=== PATIENT | female | born 1985 | race Caucasian/White ===

== ENCOUNTER 2016-11-29 11:47 | Emergency (ER) | payer OTHER | END 2016-11-29 12:25 | disposition left against medical advice (07) | LOC: CED 11:47 | DX: O21.0 Mild hyperemesis gravidarum (principal) ==

== ENCOUNTER 2016-11-29 12:43 | Emergency (ER) | payer OTHER ==
--- NOTE | 2016-11-29 12:59 | EDPHY ---
H & P Stated Complaint: N/V 9wks Time Seen by Provider: 11/29/16 12:58 - Personal History LMP (Females 10-55): Current Tetanus/Diphtheria Vaccine: Unsure Current Tetanus Diphtheria and Acellular Pertussis (TDAP): Unsure - Medical/Surgical History Hx Asthma: No Hx Chronic Respiratory Disease: No Hx Diabetes: No Hx Cardiac Disease: No Hx Renal Disease: No Hx Cirrhosis: No Hx Alcoholism: No Hx HIV/AIDS: No Hx Splenectomy or Spleen Trauma: No Other PMH: denies. breast implants - Social History Smoking Status: Never smoked Constitutional: Initial Vital Signs Temperature (C) 36.5 C 11/29/16 12:45 Heart Rate 92 11/29/16 12:45 Respiratory Rate 16 11/29/16 12:45 Blood Pressure 118/88 H 11/29/16 12:45 O2 Sat (%) 98 11/29/16 12:45 O2 Delivery Mode Room Air Allergies/Adverse Reactions: Sulfa (Sulfonamide Antibiotics) Allergy (Verified 06/03/16 12:19) Medical Decision Making ED Course/Re-evaluation: CHIEF COMPLAINT: Vomiting. HISTORY OF PRESENT ILLNESS: The patient is a 31-year-old female who presents with vomiting since yesterday. She was initially sick for four weeks after she became but this subsided. It has now come back. She denies fever, diarrhea, shortness of breath, or other complaints. REVIEW OF SYSTEMS: A 10 point review of systems was performed and is negative with the exception of the elements mentioned in the history of present illness. PHYSICAL EXAM: HR, BP, O2 Sat, RR. Temp noted General Appearance: Alert, well hydrated, appropriate, and non-toxic appearing. Head: Atraumatic without scalp tenderness or obvious injury Eyes: Pupils equal, round, reactive to light and accommodation, EOMI, no trauma , no injection. Ears: Clear bilaterally, no perforation, normal landmarks Nose: Atraumatic, no rhinorrhea, clear. Throat: There is no erythema or exudates, no lesions, normal tonsils, mucus membranes moist. Neck: Supple, 2+ carotid upstroke, nontender, no lymphadenopathy. Respiratory: No retractions, no distress, no wheezes, and no accessory muscle use. Lungs are clear to auscultation bilaterally. Cardiovascular: Regular rate and rhythm, no murmurs, rubs, or gallops. Bilateral carotid, radial, dorsalis pedis, and posterior tibial pulses intact. Good capillary refill all extremities. Gastrointestinal: Abdomen is soft, nontender, non-distended, no masses, no rebound, no guarding, no peritoneal signs. Musculoskeletal: Normal active ROM of all extremities, atraumatic. Neurological: Alert, appropriate, and interactive. The patient has normal DTRs and non-focal cranial nerves, motor, sensory, and cerebellar exam. Skin: No rashes, good turgor, no nodules on palpation. Past medical history:Miscarriage. Social history:Here alone. DIFFERENTIAL DIAGNOSIS: The differential diagnosis for this patient includes, but is not limited to dehydration, viral syndrome, cyclic vomiting syndrome, infectious process. MEDICAL DECISION MAKING: This is a 31-year-old female who presents with constant vomiting since yesterday. She does have a history of this with being . I offered Zofran but she declined and only wants fluids. An IV was established and 1L IV saline to be administered. She will be monitored and eventually PO challenged prior to discharge. - Data Points Medications Given: Discontinued Medications Sodium Chloride (Ns) 1,000 mls @ 0 mls/hr IV ONCE ONE PRN Reason: Wide Open Stop: 11/29/16 13:12 Last Admin: 11/29/16 13:12 Dose: 1,000 mls Departure - Departure Disposition: Home, Routine, Self-Care Clinical Impression: Vomiting Qualifiers: Vomiting type: unspecified Vomiting Intractability: non-intractable Nausea presence: with nausea Qualifier Code: (R11.2) Nausea with vomiting, unspecified Condition: Good Instructions: Acute Nausea and Vomiting (ED) Additional Instructions: Use your Zofran as prescribed when needed for nausea. Follow up with your primary care provider in the next 2-3 days if symptoms are not improving. Return to the emergency department for any serious worsening of condition. Referrals: Emily Warren PA [Primary Care Provider] - As per Instructions Report Scribed for: Westley Estes Report Scribed by: Trent Atkins Date of Report: 11/29/16 Time of Report: 13:32
[2016-11-29] MEDS ORDERED: NS 1,000 ML IV ONE ×2 (13:11→13:41)
[2016-11-29] MEDS ORDERED: ONDANSETRON 4 MG/2 ML VIAL IVP ONE (14:27)
[2016-11-29 14:37] VITALS: BP 100/64; PULSE 74; RESP 18; TEMP 98.1; O2SAT 97
== END 2016-11-29 14:43 | disposition home or self-care (01) ==
DX: O21.0 Mild hyperemesis gravidarum (principal); Z3A.09 9 weeks gestation of pregnancy
CPT/HCPCS: 96374; J2405

== ENCOUNTER 2017-06-27 10:50 | Inpatient (IN) | payer OTHER ==
[2017-06-27] MEDS: LR 1,000 ML IV PRN (11:00)
[2017-06-27] MEDS ORDERED: OLIVE OIL 118 ML BTL MISC PRN (11:45)
[2017-06-27] MEDS ORDERED: EPSOM SALT 454 GM TP PRN (11:45)
[2017-06-27] MEDS ORDERED: TERBUTALINE SULFATE 1 MG/ML VIAL IV PRN (11:45)
[2017-06-27] MEDS ORDERED: OXYTOCIN/RINGERS LACTATE 1,000 ML IV PRN (11:45)
[2017-06-27] MEDS ORDERED: IBUPROFEN 600 MG TAB PO PRN (11:45)
[2017-06-27 12:04] LABS: % IMMATURE GRANULYOCYTES 1.3 % (0.0-1.1); ABSOLUTE IMMATURE GRANULOCYTES 0.13 10^3/uL (0.00-0.10); ADD DIFF? NO; ADD MORPH? NO; ADD SCAN? NO; ATYPICAL LYMPHOCYTE FLAG 0 (0-99); FRAGMENT RBC FLAG 0 (0-99); HEMATOCRIT 37.1 % (38.0-47.0); HEMOGLOBIN 12.5 g/dL (12.6-16.3); LEFT SHIFT FLG 10 (0-99); LIPEMIA HEMOLYSIS FLAG 80 (0-99); MEAN CELL HEMOGLOBIN 30.8 pg (27.9-34.1); MEAN CELL HEMOGLOBIN CONCENTR. 33.7 g/dL (32.4-36.7); MEAN CELL VOLUME 91.4 fL (81.5-99.8); MEAN PLATELET VOLUME 12.3 fL (8.7-11.7); PLATELET CLUMPS FLAG 0 (0-99); PLATELET COUNT 143 10^3/uL (150-400); RED BLOOD CELL COUNT 4.06 10^6/uL (4.18-5.33); RED CELL DISTRIBUTION WIDTH 13.5 % (11.5-15.2)
[2017-06-27 12:19] LABS: ALANINE AMINOTRANSFERASE 26 IU/L (9-52); ASPARTATE AMINOTRANSFERASE 24 IU/L (14-46); BILIRUBIN,TOTAL 0.4 mg/dL (0.1-1.4); BILIRUBIN-CONJUGATED 0.3 mg/dL (0.0-0.5); BILIRUBIN-UNCONJUGATED 0.1 mg/dL (0.0-1.1); CREATININE 0.7 mg/dL (0.6-1.0); GLOMERULAR FILTRATION RATE > 60; LACTATE DEHYDROGENASE 562 IU/L (313-618); URIC ACID 4.8 mg/dL (2.5-6.8)
[2017-06-27] MEDS ORDERED: MAGNESIUM SULF 4 GM/WATER 100 ML BAG IV ONE (12:19)
[2017-06-27] MEDS ORDERED: MAGNESIUM SULF 20 GM/500 ML BAG IV ONE (13:23)
[2017-06-27] MEDS ORDERED: MAGNESIUM SULF 4 GM/WATER 100 ML IV ONE (13:23)
[2017-06-27] MEDS ORDERED: CALCIUM GLUC 10% 1 GM/10 ML VIAL IVP PRN (13:23)
[2017-06-27] MEDS ORDERED: LR 500 ML IV PRN (13:28)
[2017-06-27] MEDS ORDERED: LIDOCAINE 2% JELLY 5 ML TUBE ONE (13:29)
[2017-06-27] MEDS ORDERED: OXYTOCIN/RINGERS LACTATE 500 ML IV SCH (13:30)
[2017-06-27] MEDS: Mag Sulf 500 ML IV SCH ×2 (13:35→22:35)
--- NOTE | 2017-06-27 15:15 | GHP ---
[f rep st] PREOP HISTORY AND PHYSICAL DATE OF ADMISSION: 06/27/2017 ADMITTING DIAGNOSIS: Intrauterine at 38-6/7 weeks gestation with severe preeclampsia and oligohydramnios. HISTORY OF PRESENT ILLNESS: The patient is a 31-year-old 2, para 0-0-1-0, at 38-6/7 weeks g estation, with a last menstrual period of 09/28/2016, and an EDC of 07/05/2017. She has had good pr enatal care at [facility] since registration at 8 weeks gestation. Her course roman s been complicated by severe nausea, vomiting, and hyperemesis. Throughout the entire cou rse, she has taken Zofran p.r.n. and Phenergan. Has had IV hydration several times in this pregnanc y, but not in the last part of the 3rd trimester. She has a history of depression. She discontinue d her Celexa with the diagnosis and is not on anything since, and a recent diagnosis of pr eeclampsia. The patient was seen and had an ultrasound that revealed borderline fluid with a decrea sed KHRIS at 37 weeks. It was 7.9. On followup after aggressive IV hydration, the KHRIS increased to o marvin 10. She had a normal reactive category 1 nonstress test at that time. She has had good m ovement and normal vital signs. She had a followup ultrasound today, 1 week later, and the KHRIS was found to be 3.3 with a maximal vertical pocket of 1.1. The baby is cephalic. In the office, her bl ood pressure was 138/86 and her urine dip was 2+ protein. The patient has complained of increasing headaches, increasing abdominal pain, nausea, vomiting, and increasing edema. She generally just re ports: "I don't feel well." Denies scotoma, denies a Joshi sign, and has had decreased move ment over the last couple of days. The patient had a Tran catheter placed in the office for cervic al ripening and was admitted to labor and delivery for induction of labor secondary to oligohydramni os and suspected preeclampsia. On labor and delivery, she has had severe-range blood pressures, ran ging 160s to 180s over 90s to 120s. She, again, reports headaches, no scotomata, and generally is f eeling okay. She was started on magnesium sulfate for seizure prophylaxis and she had labs drawn. LABORATORY DATA: White blood cell count is 10.2, hemoglobin 12.5, hematocrit 37.1, platelets 143. BUN 8, creatinine 0.7, uric acid 4.8, AST 24, ALT 26, LDH 562. PAST HISTORY: In May of 2016, she had a missed and D and C, this is her second . She had severe nausea and vomiting in , both with her miscarriage and with this , and also has significant constipation with her medication. PAST GYNECOLOGICAL HISTORY: She has a normal menstrual triad, menstrual menarche at age 12, interva l every 28 days. Length 5 days. She had a sure and regular last menstrual period of 09/28/2017. S he has used Depo-Provera OCPs for control in the past. Denies history of any abnormal Paps or any other gynecological problems. PAST MEDICAL HISTORY: Significant for depression and anxiety. She was diagnosed in her 20s, has be en on Celexa for many years, and discontinued with her diagnosis. Her parents also have d epression and anxiety. PAST SURGICAL HISTORY: She has had a breast augmentation. ALLERGIES: She is allergic to sulfa as a childhood reaction. MEDICATIONS: vitamins, DHA, Zantac, Diclegis, she was on Prometrium in the 1st trimester. LABS: She is O positive. Antibody negative. RPR nonreactive. Rubella immune. Hepatitis negative . HIV negative. Cystic fibrosis, SMA, fragile X negative. TSH 0.93. Pap normal. Gonorrhea and c hlamydia normal. Verifi normal. AFP negative. 1-hour GTT 103. GBS is negative. SOCIAL HISTORY: She is . She lives with her . 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 She denies tobacco, alcohol, and drug use. FAMILY HISTORY: Paternal uncle had diabetes. Grandparents had chronic hypertension. Paternal gran dfather had a stroke. Both parents have depression. OBJECTIVE: VITAL SIGNS: Today, most recent blood pressure is 186/106, again ranging 150 to 180s ov er 90s to 120s. heart tones are in the 140s, reactive, moderate variability, category 1. She is not tal. PELVIC: Cervix was checked in the office; she was closed and 60%. Currently, she has a Tran catheter in place. GENERAL: is a well-developed, edematous white female, in no ac ekwok distress. LUNGS: Clear to auscultation bilaterally. HEART: Regular rate and rhythm. No murm ur. ABDOMEN: Is gravid. Fundal height is 38. Negative Joshi sign. DTRs are 2+ over 2+. She roman s 1-beat of clonus. She does have 1+ edema in her feet. LABORATORY DATA: As above. ASSESSMENT/PLAN: 31-year-old 2, para 0-0-1-0, at 38-6/7 weeks gestation. Induction of labo r secondary to preeclampsia. She is on magnesium sulfate for seizure prophylaxis. We will start Pi tocin with a Tran catheter in place, and I will use IV hydralazine or labetalol to keep her blood p ressures in a safer range. /[id number]/MODL
[2017-06-27] MEDS: hydrALAZINE 20 MG/ML VIAL IVP PRN ×4 (16:09→18:50)
[2017-06-27] MEDS ORDERED: LORazepam 2 MG/ML INJ IVP ONE (17:18)
[2017-06-27 18:34] LABS: ALANINE AMINOTRANSFERASE 36 IU/L (9-52); ASPARTATE AMINOTRANSFERASE 44 IU/L (14-46); CREATININE 0.7 mg/dL (0.6-1.0); GLOMERULAR FILTRATION RATE > 60; LACTATE DEHYDROGENASE 712 IU/L (313-618); URIC ACID 6.4 mg/dL (2.5-6.8)
[2017-06-27 18:51] LABS: % IMMATURE GRANULYOCYTES 1.1 % (0.0-1.1); ABSOLUTE IMMATURE GRANULOCYTES 0.16 10^3/uL (0.00-0.10); ADD DIFF? NO; ADD MORPH? NO; ADD SCAN? NO; ATYPICAL LYMPHOCYTE FLAG 0 (0-99); FRAGMENT RBC FLAG 0 (0-99); HEMATOCRIT 40.9 % (38.0-47.0); HEMOGLOBIN 13.9 g/dL (12.6-16.3); LEFT SHIFT FLG 0 (0-99); LIPEMIA HEMOLYSIS FLAG 90 (0-99); MEAN CELL VOLUME 91.1 fL (81.5-99.8); MEAN PLATELET VOLUME 12.6 fL (8.7-11.7); PLATELET CLUMPS FLAG 0 (0-99); PLATELET COUNT 161 10^3/uL (150-400); RED BLOOD CELL COUNT 4.49 10^6/uL (4.18-5.33); RED CELL DISTRIBUTION WIDTH 13.8 % (11.5-15.2)
[2017-06-27 18:55] LABS: ALANINE AMINOTRANSFERASE 29 IU/L (9-52); ASPARTATE AMINOTRANSFERASE 29 IU/L (14-46); BILIRUBIN,TOTAL 0.6 mg/dL (0.1-1.4); BILIRUBIN-CONJUGATED 0.3 mg/dL (0.0-0.5); BILIRUBIN-UNCONJUGATED 0.3 mg/dL (0.0-1.1); CREATININE 0.7 mg/dL (0.6-1.0); GLOMERULAR FILTRATION RATE > 60; LACTATE DEHYDROGENASE 556 IU/L (313-618); URIC ACID 5.1 mg/dL (2.5-6.8)
[2017-06-27] MEDS ORDERED: diphenhydrAMINE 25 MG CAP PO PRN (19:36)
--- NOTE | 2017-06-27 19:56 | OBPROG ---
OBG Labor Progress Note Assessment/Plan: Assessment: IUP at 38w6d severe preeclampsia - improved B/P with hydralazine, labs normal, on mag castro placed at 10:30 this am on low dose pit Plan: will remove castro later tonight. 06/27/17 19:52 Subjective: patient has been miserable on magnesium, feeling done and earlier requesting a c /s for delivery. No GALARZA or nausea. has had occas some visual changes but resolved. Not thinking she can do this. Stated she wasn't anxious but had requested meds and feels much better after dose of Ativan. Currently has been fine with the plan of low dose pit and castro for now. Not feeling ctxns now on 8 mu/min of pit. No cramping after castro today Objective: 06/27/17 18:15 06/27/17 18:15 Patient ABO/Rh O POSITIVE 06/27/17 11:50 Uric Acid 5.1 mg/dL (2.5-6.8) 06/27/17 18:15 Total Bilirubin 0.6 mg/dL (0.1-1.4) 06/27/17 18:15 Conjugated Bilirubin 0.3 mg/dL (0.0-0.5) 06/27/17 18:15 Unconjugated Bilirubin 0.3 mg/dL (0.0-1.1) 06/27/17 18:15 AST 29 IU/L (14-46) 06/27/17 18:15 ALT 29 IU/L (9-52) 06/27/17 18:15 Lactate Dehydrogenase 556 IU/L (313-618) 06/27/17 18:15 Temp Pulse Resp BP Pulse Ox 167/107 H 06/27/17 18:50 Sommers Current Contraction Pattern: Regular (occas ctxns on pit - mild) FHR (bpm): 140 FHR Pattern Variability: Moderate FHR Category: 1 Membranes: Intact Oxytocin Orders Assessment - Pre-Induction/Augmentation Assessment Gestational Age: 38 week(s) and 6 day(s) ICD10 Worksheet Patient Problems: Problems Problem Status Onset Oligohydramnios Acute Severe pre-eclampsia Acute - ICD10 Problem Qualifiers (1) Severe pre-eclampsia Qualifiers: Trimester: T (2) Oligohydramnios Qualifiers: Fetus number: F Trimester: T
--- NOTE | 2017-06-27 21:36 | OBPROG ---
OBG Labor Progress Note Assessment/Plan: Assessment: IUP at 38w6d severe preeclampsia - improved B/P with hydralazine, labs normal, on mag castro out on low dose pit, will increase and get EDWARD when uncomf, AROM after comfortable Plan: Benadryl for sleep, EDWARD prn 06/27/17 19:52 06/27/17 21:33 Subjective: Pt doing a lot better. relaxed and doesn't feel as awful as before, had some Gatorade. No GALARZA or nausea. Disc getting out castro and progressing with pit vs stopping and resting for night. Pt wants to keep going and get EDWARD when ready and rest. Disc B/P being much better and feel she's much more relaxed Objective: 06/27/17 18:15 06/27/17 18:15 Patient ABO/Rh O POSITIVE 06/27/17 11:50 Uric Acid 5.1 mg/dL (2.5-6.8) 06/27/17 18:15 Total Bilirubin 0.6 mg/dL (0.1-1.4) 06/27/17 18:15 Conjugated Bilirubin 0.3 mg/dL (0.0-0.5) 06/27/17 18:15 Unconjugated Bilirubin 0.3 mg/dL (0.0-1.1) 06/27/17 18:15 AST 29 IU/L (14-46) 06/27/17 18:15 ALT 29 IU/L (9-52) 06/27/17 18:15 Lactate Dehydrogenase 556 IU/L (313-618) 06/27/17 18:15 Temp Pulse Resp BP Pulse Ox 167/107 H 06/27/17 18:50 castro removed without problem - SVE Dilation (cm): 2 Effacement (%): 90 Station: -2 Sommers Current Contraction Pattern: Regular (6-8 min) FHR (bpm): 140 FHR Pattern Variability: Moderate FHR Category: 1 Membranes: Intact Oxytocin Orders Assessment - Pre-Induction/Augmentation Assessment Gestational Age: 38 week(s) and 6 day(s) ICD10 Worksheet Patient Problems: Problems Problem Status Onset Oligohydramnios Acute Severe pre-eclampsia Acute - ICD10 Problem Qualifiers (1) Severe pre-eclampsia Qualifiers: Trimester: T (2) Oligohydramnios Qualifiers: Fetus number: F Trimester: T
[2017-06-27] MEDS: ACETAMINOPHEN 325 MG TAB PO PRN (21:40)
[2017-06-28] MEDS: hydrALAZINE 20 MG/ML VIAL IVP PRN (01:25)
[2017-06-28] MEDS ORDERED: fentaNYL 2MCG/ML/BUP 0.1% RTU 100 ML BAG EP ONE (02:09)
[2017-06-28] MEDS ORDERED: BUPIVACAINE 0.25% 30 ML SDV ONE (02:10)
[2017-06-28] MEDS ORDERED: PHENYLEPHRINE HCL 100 MCG/ML SYR ONE ×4 (02:10→16:03)
[2017-06-28] MEDS ORDERED: fentaNYL 100 MCG/2 ML INJ ONE ×2 (02:11→15:15)
[2017-06-28] MEDS: ACETAMINOPHEN 325 MG TAB PO PRN (02:16)
[2017-06-28] MEDS ORDERED: ONDANSETRON 4 MG/2 ML VIAL ONE ×2 (02:47→16:53)
--- NOTE | 2017-06-28 03:55 | PREANESOB ---
Obstetric Pre-Anesthesia Info - General Info Proposed Procedure: Labor and delivery with pitocin and magnesium : 2 Para: 0 WBD: 39 - Info Status: Full Term Monitors: External FHR Baseline (bpm): 150 FHR Pattern: Reassuring - Labor Status Cervical Dilation per last OB SVE: 2 Station per last OB SVE: -2 Pitocin: In Use PIH: Severe Magnesium Sulfate in Use: Yes Indications for Labor Analgesia: Induction of Labor, Pain Control Labor Epidural: Proposed Anesthesia ROS: Preeclampsia. Prior general anesthesia x 2. Allergies/Adverse Reactions: Allergy/AdvReac Type Severity Reaction Status Date / Time Sulfa (Sulfonamide Allergy Verified 06/03/16 12:19 Antibiotics) Home Medications: Medication Instructions Recorded Budesonide [Rhinocort Allergy] 1 NASAL DAILY 06/27/17 Calcium Carb/Vitamin D3/Vit K1 1 each PO 06/27/17 [Viactiv Soft Chew Tablet] Vit27&Calcium/Iron/FA 1 tab PO DAILY 06/27/17 [] Ranitidine HCl [Zantac 75] 75 mg PO BID 06/27/17 Visit Medications: Generic Name Dose Route Start Last Admin Trade Name Freq PRN Reason Stop Dose Admin Acetaminophen 650 mg 06/27/17 21:32 06/28/17 02:16 Tylenol PO 12/24/17 21:31 650 mg Q4HRS PRN Administration Pain, Mild/Fever, Can Take PO Calcium Gluconate 1 gm 06/27/17 13:23 Calcium Gluconate IVP 12/24/17 13:22 PRN PRN Magnesium Toxicity Diphenhydramine HCl 25 mg 06/27/17 19:36 06/27/17 21:38 Benadryl PO 12/24/17 19:35 25 mg HS PRN Administration Sleep/Insomnia Hydralazine HCl 5 mg 06/27/17 15:58 06/28/17 01:25 Apresoline IVP 12/24/17 15:57 5 mg Q6HRS PRN Administration SBP Greater Than 160 Lactated Ringer's 1,000 mls @ 0 mls/hr 06/27/17 11:45 06/27/17 11:00 Lr IV 12/24/17 11:44 1,000 mls PRN PRN Administration SEE PROTOCOL CONDITIONS Protocol Per Protocol Oxytocin/Lactated Ringer's 1,000 mls @ 150 mls/hr 06/27/17 11:45 Pitocin 20 Units/Lr (Premix) IV PRN PRN Post- bleeding Magnesium Sulfate 500 mls @ 50 mls/hr 06/27/17 13:30 06/27/17 22:35 Magnesium Sulfate 20 Gm/ 500 Ml (Premix) IV 12/24/17 13:29 500 mls CONT ANGELITA Administration Lactated Ringer's 500 mls @ 500 mls/hr 06/27/17 13:28 Lr IV PRN PRN Maternal Hypotension Oxytocin/Lactated Ringer's 500 mls @ 0 mls/hr 06/27/17 13:30 06/27/17 13:59 Pitocin 30 Units/Lr (Premix) IV 12/24/17 13:29 500 mls CONT ANGELITA Administration Protocol Per Protocol Ibuprofen 600 mg 06/27/17 11:45 Motrin PO 12/24/17 11:44 Q6HRS PRN post , inflammation Magnesium Sulfate 454 gm 06/27/17 11:45 Epsom Salt TP 12/24/17 11:44 Q1H PRN perineal discomfort [place] Oil 118 ml 06/27/17 11:45 Sweet Oil MISC 12/24/17 11:44 ONCE PRN preneal massage Terbutaline Sulfate 0.25 mg 06/27/17 11:45 Brethine IV 12/24/17 11:44 ONCE PRN Tachysystole Discontinued Medications Generic Name Dose Route Start Last Admin Trade Name Freq PRN Reason Stop Dose Admin Bupivacaine HCl Confirm 06/28/17 02:10 Sensorcaine 0.25% Sdv Administered 06/28/17 02:11 Dose 30 ml .ROUTE .STK-MED ONE Fentanyl Confirm 06/28/17 02:11 Sublimaze Administered 06/28/17 02:12 Dose 100 mcg .ROUTE .STK-MED ONE Fentanyl/Bupivacaine HCl Confirm 06/28/17 02:09 Fentanyl/Bupivacaine/Ns 2 Mcg/Ml 0.1% (Premix Administered 06/28/17 02:10 Dose 100 ml EP .STK-MED ONE Magnesium Sulfate 100 mls @ 200 mls/hr 06/27/17 13:23 06/27/17 12:25 Magnesium Sulf 4 Gm (Premix) IV 06/27/17 13:52 100 mls ONCE ONE Administration Lidocaine Confirm 06/27/17 13:29 Lidocaine 2% Jelly Administered 06/27/17 13:30 Dose 5 ben .ROUTE .STK-MED ONE Lorazepam 1 mg 06/27/17 17:18 06/27/17 18:25 Ativan Injection IVP 06/27/17 17:19 1 mg ONCE ONE Administration Magnesium Sulfate Confirm 06/27/17 12:19 Magnesium Sulf 4 Gm (Premix) Administered 06/27/17 12:20 Dose 4 gm IV .STK-MED ONE Magnesium Sulfate Confirm 06/27/17 13:23 Magnesium Sulfate 20 Gm/ 500 Ml (Premix) Administered 06/27/17 13:24 Dose 20 gm IV .STK-MED ONE Ondansetron HCl Confirm 06/28/17 02:47 Zofran Administered 06/28/17 02:48 Dose 4 mg .ROUTE .STK-MED ONE Phenylephrine HCl Confirm 06/28/17 02:10 Neosynephrine Administered 06/28/17 02:11 Dose 1,000 mcg .ROUTE .STK-MED ONE - Anesthesia History Response to Local Anesthetics: Normal Anesthesia & Operative History: No Prior Problems Family Anesthesia History: Negative - Social History Substance Use/Abuse: Denies - Focused Exam Latest Vital Signs (Nursing): Temp Pulse Resp BP Pulse Ox 167/96 H 06/28/17 01:25 Blood Pressure: 163/96 Heart Rate: 113 Height/Weight (Nursing): Height 167.64 cm Weight 101.605 kg Physical Exam: Peripheral edema, otherwise within normal limits. ASA Status: II Labs: 06/27/17 18:15 06/27/17 18:15 Patient ABO/Rh O POSITIVE 06/27/17 11:50 Uric Acid 5.1 mg/dL (2.5-6.8) 06/27/17 18:15 Total Bilirubin 0.6 mg/dL (0.1-1.4) 06/27/17 18:15 Conjugated Bilirubin 0.3 mg/dL (0.0-0.5) 06/27/17 18:15 Unconjugated Bilirubin 0.3 mg/dL (0.0-1.1) 06/27/17 18:15 AST 29 IU/L (14-46) 06/27/17 18:15 ALT 29 IU/L (9-52) 06/27/17 18:15 Lactate Dehydrogenase 556 IU/L (313-618) 06/27/17 18:15 - Plan Anesthetic Plan: CSE Consent Signed and on Chart: Yes Patient/Guardian Understands and Agrees to Plan: Yes Urgent/Emergent Case: Anes eval completed preop but documented later for safe timely pt care
[2017-06-28] MEDS: LR 1,000 ML IV PRN (04:05)
--- NOTE | 2017-06-28 04:05 | POSTANESTH ---
Post Anesthetic Evaluation Cardiovascular Status: Tx Hyper/Hypo-tension (Significant decrease in BP after CSE treated with position, IV fluid bolus, and phenylephrine.) Respiratory Status: Normal, Stable, Similar to Pre-op Cond. Level of Consciousness/Mental Status: Can Participate in Eval, Alert and Oriented Pain Control: Adequate, Prn Tx Ordered Nausea/Vomiting Control: Adequate, Prn Tx Ordered Complications Possibly Related to Anesthesia: None Noted
[2017-06-28] MEDS ORDERED: PHENYLEPHRINE HCL 100 MCG/ML SYR IVP PRN ×2 (04:06→16:39)
[2017-06-28] MEDS ORDERED: METOCLOPRAMIDE 10 MG/2 ML VIAL IVP PRN (04:06)
[2017-06-28] MEDS ORDERED: LIDOCAINE 1% 300 MG/30 ML SDV ONE (04:18)
[2017-06-28] MEDS ORDERED: AMMONIA AROMATIC 1 EACH AMP IH ONE (04:19)
[2017-06-28] MEDS ORDERED: MISOPROSTOL 200 MCG TAB ONE (04:19)
[2017-06-28] MEDS ORDERED: OLIVE OIL 118 ML BTL ONE (04:19)
[2017-06-28] MEDS ORDERED: TERBUTALINE SULFATE 1 MG/ML VIAL ONE (04:19)
[2017-06-28] MEDS ORDERED: OXYTOCIN 10 UNIT/ML VIAL ONE (04:19)
[2017-06-28] MEDS ORDERED: fentaNYL 2MCG/ML/BUP 0.1% RTU 100 ML EP SCH (04:30)
[2017-06-28] MEDS ORDERED: LR 500 ML IV SCH (04:30)
[2017-06-28 06:36] LABS: % IMMATURE GRANULYOCYTES 0.9 % (0.0-1.1); ABSOLUTE IMMATURE GRANULOCYTES 0.16 10^3/uL (0.00-0.10); ADD DIFF? NO; ADD MORPH? NO; ADD SCAN? NO; ATYPICAL LYMPHOCYTE FLAG 0 (0-99); FRAGMENT RBC FLAG 0 (0-99); HEMATOCRIT 37.3 % (38.0-47.0); HEMOGLOBIN 12.5 g/dL (12.6-16.3); LEFT SHIFT FLG 0 (0-99); LIPEMIA HEMOLYSIS FLAG 80 (0-99); MEAN CELL HEMOGLOBIN CONCENTR. 33.5 g/dL (32.4-36.7); MEAN CELL VOLUME 92.6 fL (81.5-99.8); MEAN PLATELET VOLUME 11.9 fL (8.7-11.7); PLATELET CLUMPS FLAG 10 (0-99); PLATELET COUNT 156 10^3/uL (150-400); RED BLOOD CELL COUNT 4.03 10^6/uL (4.18-5.33)
[2017-06-28 07:08] LABS: ALANINE AMINOTRANSFERASE 18 IU/L (9-52); ASPARTATE AMINOTRANSFERASE 31 IU/L (14-46); CREATININE 0.9 mg/dL (0.6-1.0); GLOMERULAR FILTRATION RATE > 60; LACTATE DEHYDROGENASE 588 IU/L (313-618); URIC ACID 5.7 mg/dL (2.5-6.8)
[2017-06-28] MEDS: ONDANSETRON 4 MG/2 ML VIAL IVP PRN ×2 (08:01→14:30)
[2017-06-28] MEDS ORDERED: MISOPROSTOL 100 MCG TAB PO ONE (08:46)
--- NOTE | 2017-06-28 08:51 | OBPROG ---
OBG Labor Progress Note Assessment/Plan: Assessment: 31 y/o @ 39 weeks with severe preeclampsia and oligohydramnios for IOL Plan: 1) Pt currently on mag sulfate - 2gm maintenance PIH labs this am - mostly stable, elev LDH and uric acid BPs labile since epidural; last dose Hydralazine at 0125 Pt is asymptomatic at this am; had both GALARZA and blurred vision yesterday evening Diuresing well, urine is now blood-tinged now Cont to monitor closely 2) s/p castro balloon, Pitocin at 20 mu/min with very little cervical change Unable to AROM at this time Will stop Pitocin and try Cytotec 50 mcg orally at first s/p epidural, pt is comfortable 06/28/17 08:58 Objective: 06/28/17 06:20 06/28/17 06:20 Patient ABO/Rh O POSITIVE 06/27/17 11:50 Uric Acid 5.7 mg/dL (2.5-6.8) 06/28/17 06:20 Total Bilirubin 0.6 mg/dL (0.1-1.4) 06/27/17 18:15 Conjugated Bilirubin 0.3 mg/dL (0.0-0.5) 06/27/17 18:15 Unconjugated Bilirubin 0.3 mg/dL (0.0-1.1) 06/27/17 18:15 AST 31 IU/L (14-46) 06/28/17 06:20 ALT 18 IU/L (9-52) 06/28/17 06:20 Lactate Dehydrogenase 588 IU/L (313-618) 06/28/17 06:20 Temp Pulse Resp BP Pulse Ox 113 H 163/96 H 06/28/17 04:02 06/28/17 04:02 - SVE Dilation (cm): 2 (1-2) Effacement (%): 90 Station: -3 Sommers Current Contraction Pattern: Irregular FHR (bpm): 130 FHR Pattern Variability: Moderate FHR Category: 1 Membranes: Intact - Physical Exam General Appearance: WD/WN, alert, no apparent distress Respiratory: lungs clear, normal breath sounds Cardiac/Chest: regular rate, rhythm Abdomen: non-tender, soft, other (gravid) Extremities: non-tender, swelling (+1) DTR- Lower Extremities: Plantar (R): 2+, Plantar (L): 2+ Skin: normal color, warm/dry Neuro/Psych: alert, normal mood/affect, oriented x 3 Oxytocin Orders Assessment - Pre-Induction/Augmentation Assessment Gestational Age: 38 week(s) and 6 day(s) ICD10 Worksheet Patient Problems: Problems Problem Status Onset Oligohydramnios Acute Severe pre-eclampsia Acute
[2017-06-28] MEDS: Mag Sulf 500 ML IV SCH (09:16)
[2017-06-28] MEDS: OXYMETAZOLINE 30 ML NASAL SPRAY EACHNARE SCH (09:51)
[2017-06-28] MEDS: MISOPROSTOL 100 MCG TAB PO SCH ×2 (13:27→19:45)
--- NOTE | 2017-06-28 13:35 | OBPROG ---
OBG Labor Progress Note Assessment/Plan: Assessment: 31 y/o @ 39 weeks with severe preeclampsia and oligohydramnios for IOL Plan: 1) Pt currently on mag sulfate - 2gm maintenance BPs stable, 130-40/80-90s Diuresing well Cont to monitor closely 2) s/p castro balloon, Pitocin up to 20 mu/min, and Cytotec 50 mcg x 1 po No cervical change noted and unable to AROM Pt is able to feel cramping and cervical exam, epidural not working, to rebolus Will give another oral dose Cytotec FHTs - Cat I tracing 06/28/17 13:38 Subjective: Pt is feeling her cramps/ctx's as well as cervical exam. Doing well with Mag- tolerating. Denies any HAs, visual changes or RUQ pain. Objective: 06/28/17 06:20 06/28/17 06:20 Patient ABO/Rh O POSITIVE 06/27/17 11:50 Uric Acid 5.7 mg/dL (2.5-6.8) 06/28/17 06:20 Total Bilirubin 0.6 mg/dL (0.1-1.4) 06/27/17 18:15 Conjugated Bilirubin 0.3 mg/dL (0.0-0.5) 06/27/17 18:15 Unconjugated Bilirubin 0.3 mg/dL (0.0-1.1) 06/27/17 18:15 AST 31 IU/L (14-46) 06/28/17 06:20 ALT 18 IU/L (9-52) 06/28/17 06:20 Lactate Dehydrogenase 588 IU/L (313-618) 06/28/17 06:20 Temp Pulse Resp BP Pulse Ox 113 H 163/96 H 06/28/17 04:02 06/28/17 04:02 Sommers Current Contraction Pattern: Other (Specify) (Irritability) FHR (bpm): 130 FHR Pattern Variability: Moderate FHR Category: 1 Membranes: Intact - Physical Exam DTR- Lower Extremities: Plantar (R): 2+, Plantar (L): 2+ Oxytocin Orders Assessment - Pre-Induction/Augmentation Assessment Gestational Age: 38 week(s) and 6 day(s) ICD10 Worksheet Patient Problems: Problems Problem Status Onset Oligohydramnios Acute Severe pre-eclampsia Acute
[2017-06-28] MEDS ORDERED: LORazepam 1 MG TAB PO ONE (14:15)
[2017-06-28] MEDS ORDERED: ceFAZolin 2 GM/DEXTROSE 100 ML IV ONE (14:31)
--- NOTE | 2017-06-28 15:11 | OBPROG ---
OBG Labor Progress Note Assessment/Plan: Assessment: 31 y/o @ 39 weeks with severe preeclampsia and oligohydramnios for IOL Plan: 1) Pt currently on mag sulfate - 2gm maintenance BPs stable, 130-40/80-90s Diuresing really well Cont to monitor closely 2) s/p castro balloon, Pitocin up to 20 mu/min, and s/p Cytotec x2 50 mcg Pt reexamined and no cervical change noted and still unable to AROM FHTs - Cat I tracing Discussed no real cervical change and proceeding with PCS secondary to failed IOL, severe preeclampsia Surgical consents obtained; R/B/A reviewed with pt including but not limited to bleeding, infection and damage to surrounding organs Pt understands risks and wants to proceed with surgery at this time Abx onc all to OR SCDs for DVT prophylaxis 06/28/17 15:05 Subjective: Pt is anxious about how long the process is taking and that her cervix is not changing as well as her epidural that is not working. Objective: 06/28/17 06:20 06/28/17 06:20 Patient ABO/Rh O POSITIVE 06/27/17 11:50 Uric Acid 5.7 mg/dL (2.5-6.8) 06/28/17 06:20 Total Bilirubin 0.6 mg/dL (0.1-1.4) 06/27/17 18:15 Conjugated Bilirubin 0.3 mg/dL (0.0-0.5) 06/27/17 18:15 Unconjugated Bilirubin 0.3 mg/dL (0.0-1.1) 06/27/17 18:15 AST 31 IU/L (14-46) 06/28/17 06:20 ALT 18 IU/L (9-52) 06/28/17 06:20 Lactate Dehydrogenase 588 IU/L (313-618) 06/28/17 06:20 Temp Pulse Resp BP Pulse Ox 113 H 163/96 H 06/28/17 04:02 06/28/17 04:02 - SVE Dilation (cm): 1 Effacement (%): 90 Station: -3 Sommers Current Contraction Pattern: Other (Specify) (Irritability) FHR (bpm): 130 FHR Pattern Variability: Moderate FHR Category: 1 Membranes: Intact Oxytocin Orders Assessment - Pre-Induction/Augmentation Assessment Gestational Age: 38 week(s) and 6 day(s) ICD10 Worksheet Patient Problems: Problems Problem Status Onset Failed induction of labor Acute Oligohydramnios Acute Severe pre-eclampsia Acute - ICD10 Problem Qualifiers (1) Failed induction of labor Qualifiers: Failed induction of labor type: F
[2017-06-28] MEDS: KETOROLAC 30 MG/1 ML SDV IVP PRN ×2 (16:05→18:05)
[2017-06-28] MEDS ORDERED: epHEDrine SULFATE 10 MG/ML SYR ONE ×2 (16:08→16:24)
[2017-06-28] MEDS ORDERED: METHYLERGONOVINE MAL 0.2 MG/ML INJ ONE (16:18)
[2017-06-28] MEDS ORDERED: HEMABATE 250 MCG/1 ML AMP IM ONE ×2 (16:18→16:20)
[2017-06-28] MEDS ORDERED: HYDROmorphONE/DILAUDID 1 MG/ML SYR IVP PRN (16:39)
[2017-06-28] MEDS ORDERED: fentaNYL 100 MCG/2 ML INJ IVP PRN (16:39)
[2017-06-28] MEDS ORDERED: OXYTOCIN 100 UNITS/10 ML VIAL ONE (16:51)
[2017-06-28] MEDS ORDERED: DEXAMETHASONE 4 MG/ML VIAL ONE (16:53)
[2017-06-28] MEDS ORDERED: PROMETHAZINE HCL 25 MG/ML INJ IVP PRN (17:50)
[2017-06-28] MEDS ORDERED: ACETAMINOPHEN 325 MG TAB PO PRN (17:50)
[2017-06-28] MEDS ORDERED: POLYETHYLENE GLYCOL 3350 17 GM PKT PO PRN (17:50)
[2017-06-28] MEDS ORDERED: SIMETHICONE 80 MG TAB CHEW PO PRN (17:50)
[2017-06-28] MEDS ORDERED: BISACODYL 10 MG SUPP PR PRN (17:50)
[2017-06-28] MEDS ORDERED: LACTULOSE 20 GM/30 ML UDCUP PO PRN (17:50)
[2017-06-28] MEDS ORDERED: MAGNESIUM HYDROXIDE 30 ML UDCUP PO PRN (17:50)
--- NOTE | 2017-06-28 17:58 | OBDEL ---
Info Type: Primary GBS+: No Indications for Delivery: Preeclampsia Severe (Failed IOL) Operative Report - Delivery Pre-op Diagnoses: IUP @ 39 wks with oligo and severe preeclampisa with failed IOL-s/p castro balloon, Pitocin and cytotec x 2 Post-op Diagnoses: IUP @ 39 wks with oligo and severe preeclampisa with failed IOL-s/p castro balloon, Pitocin and cytotec x 2 Nulliparous Prior to Delivery: Yes Presentation at Delivery: Vertex Procedure: Low Transverse Surgeon: Aleena Martinez Elevating Grader Operator: Tram Payne Anesthesiologist: Cleveland Kim Job Spotter/VAMP CREASER: Mami Yancey L&Charline Analgesia/Anesthesia Type: Spinal Complications: Other (Specify) (Uterine inversion -) Findings: A viable female with 8 and 9 Apgars. Uterine inversion noted; placenta delivered manually intact. Uterine inversion corrected with fist pressure. Grossly normal appearing uterus, tubes and ovaries b/l. Cord blood obtained. Specimen(s)/Path: Other (Specify) (none) IV Fluid (ml): 1,200 EBL: 700 cc UO: 275 cc clear urine [place] Data Sommers Delivery Date: 06/28/17 Delivery Time: 16:13 TANYA: 07/05/17 Gestational Age: 39 week(s) and 0 day(s) Sex of : Female Score (1 Min): 8 Score (5 Min): 9 ICD10 Worksheet Patient Problems: Problems Problem Status Onset Failed induction of labor Acute Oligohydramnios Acute S/P section Acute Severe pre-eclampsia Acute Status post primary low transverse section Acute - ICD10 Problem Qualifiers (1) Failed induction of labor Qualifiers: Failed induction of labor type: F (2) S/P section (3) Status post primary low transverse section
[2017-06-28] MEDS ORDERED: KETOROLAC 30 MG/1 ML SDV ONE (18:02)
--- NOTE | 2017-06-28 18:59 | POSTANESTH ---
Post Anesthetic Evaluation Cardiovascular Status: Normal, Stable Respiratory Status: Normal, Stable Level of Consciousness/Mental Status: Can Participate in Eval Pain Control: Adequate, Prn Tx Ordered Nausea/Vomiting Control: Adequate, Prn Tx Ordered Complications Possibly Related to Anesthesia: None Noted (This post-anesthetic evaluation placed to document the condition of patient following on .)
--- NOTE | 2017-06-28 19:24 | GOP ---
[f rep st] OPERATIVE REPORT DATE OF OPERATION: 06/27/2017 SURGEON: Aleena Martinez DO SIMPLEX OPERATOR: SHERRILL Hall. ANESTHESIA: Spinal. ANESTHESIOLOGIST: Cleveland Kim MD. PREOPERATIVE DIAGNOSIS: 1. Intrauterine at 39 weeks. 2. Oligohydramnios. 3. Severe preeclampsia. 4. Failed induction. POSTOPERATIVE DIAGNOSIS: 1. Intrauterine at 39 weeks. 2. Oligohydramnios. 3. Severe preeclampsia. 4. Failed induction. PROCEDURE PERFORMED: Primary low transverse section. FINDINGS: A viable female infant with 8 and 9 Apgars in cephalic presentation. Uterine inversion noted and corrected by constant fist pressure. Placenta delivered manually intact with a 3-vessel cord. Uterus noted to be boggy and patient given Hemabate as well as Cytotec. Cord blood was obtained. Grossly normal-appearing tubes and ovaries bilaterally. ESTIMATED BLOOD LOSS: 700 cc. INDICATIONS: The patient is a 31-year-old prime at 39 weeks who presents with oligohydramnios on recent ultrasound and severe preeclampsia for an induction of labor. Patient did get a Tran balloon placed as well as Pitocin up to 20 milliunits per minute and cervical ripening with Cytotec and was still 24 hours later only 1 cm dilated. Unable to AROM. Discussed with the patient that with no cervical change despite these measures, and severe preeclampsia requiring mag sulfate, recommend we proceed with primary . She agrees with the plan. Surgical consents were obtained. Risks, benefits, alternatives reviewed with the patient including but not limited to, bleeding, infection, damage to surrounding organs. The patient understands all risks at this time and wants to proceed with surgery. DESCRIPTION OF PROCEDURE: Patient was taken to the operating room where spinal anesthesia was administered without difficulty. The patient was prepped and draped in the usual sterile fashion, dorsal supine position with leftward tilt. Pfannenstiel skin incision was made with a scalpel, and carried through the underlying layer of fascia using the Bovie. The fascia was incised in midline and extended laterally using Patel scissors. Yahir clamps were then used to elevate the superior aspect of the fascial incision. Underlying rectus muscles were dissected off using the Patel scissors. Attention was then turned to the inferior aspect of the fascial incision, which in a similar fashion was grasped with Yahir clamps, elevated, underlying rectus muscles dissected off using Patel scissors. Rectus muscles were then dissected in the midline. Peritoneum was identified and entered bluntly. Incision was then extended superiorly and inferiorly with good visualization of bladder. Bladder blade was then inserted. Vesicouterine peritoneum was identified, entered sharply with Metzenbaum scissors. Bladder flap was created digitally. Uterine incision was then made with scalpel in a transverse fashion, and extended anteriorly and posteriorly with manual traction. was then delivered without difficulty in cephalic presentation. Cord clamped x2 and cut. We did wait for delayed cord clamping. The infant then handed off to awaiting nursery nurse. It was a viable female infant, with 8 and 9 Apgars. Cord blood was obtained. We did note at this time delivering the placenta that there was a uterine inversion, so the placenta was manually removed intact with 3-vessel cord. The uterine inversion was corrected by using constant fist pressure to revert the uterus. The uterus at this time was noted to be boogy and the patient received Hemabate x one and Cytotec 800 mcg per rectum and the uterus then became firm. The uterus was already exteriorized at this time, and was cleared of all clots and debris, and any remaining placental tissue. The uterine incision was then repaired in 2 layers using 0 Vicryl. Hemostasis was visualized. The uterus was then returned back into the abdomen. All gutters were cleared of any blood or blood clots. The uterine incision was reexamined, and noted to be oozing. At this time, surgical Dottie was placed and hemostasis was achieved. Rectus muscles were then reapproximated in the midline using 3-0 Vicryl. The fascia was closed with 0 Vicryl suture. Again, hemostasis was noted. The subcutaneous closed with 3-0 Vicryl. Skin was then closed with 4-0 Vicryl on a Kailash needle. Sponge, lap, and instrument counts correct x2. Patient tolerated procedure well. No complications. The patient was stable at the completion of the procedure, transferred to the recovery room in stable condition. IV FLUIDS: 1200 cc LR. URINE OUTPUT: 275 cc of clear urine. /[id number]/MODL MTDD
[2017-06-29] MEDS: Mag Sulf 500 ML IV SCH ×2 (02:05→12:36)
[2017-06-29 06:23] LABS: % IMMATURE GRANULYOCYTES 0.6 % (0.0-1.1); ABSOLUTE IMMATURE GRANULOCYTES 0.09 10^3/uL (0.00-0.10); ADD DIFF? NO; ADD MORPH? NO; ADD SCAN? NO; ATYPICAL LYMPHOCYTE FLAG 0 (0-99); FRAGMENT RBC FLAG 10 (0-99); HEMATOCRIT 31.7 % (38.0-47.0); HEMOGLOBIN 10.6 g/dL (12.6-16.3); LEFT SHIFT FLG 0 (0-99); LIPEMIA HEMOLYSIS FLAG 80 (0-99); MEAN CELL HEMOGLOBIN 30.7 pg (27.9-34.1); MEAN CELL HEMOGLOBIN CONCENTR. 33.4 g/dL (32.4-36.7); MEAN CELL VOLUME 91.9 fL (81.5-99.8); MEAN PLATELET VOLUME 11.6 fL (8.7-11.7); PLATELET CLUMPS FLAG 20 (0-99); PLATELET COUNT 164 10^3/uL (150-400); RED BLOOD CELL COUNT 3.45 10^6/uL (4.18-5.33); RED CELL DISTRIBUTION WIDTH 13.9 % (11.5-15.2)
[2017-06-29 06:43] LABS: ALANINE AMINOTRANSFERASE 25 IU/L (9-52); ASPARTATE AMINOTRANSFERASE 31 IU/L (14-46); BILIRUBIN,TOTAL 0.6 mg/dL (0.1-1.4); BILIRUBIN-CONJUGATED 0.4 mg/dL (0.0-0.5); BILIRUBIN-UNCONJUGATED 0.2 mg/dL (0.0-1.1); CREATININE 0.8 mg/dL (0.6-1.0); GLOMERULAR FILTRATION RATE > 60; LACTATE DEHYDROGENASE 940 IU/L (313-618); URIC ACID 5.5 mg/dL (2.5-6.8)
[2017-06-29] MEDS: KETOROLAC 30 MG/1 ML SDV IVP PRN ×3 (07:40→13:44)
[2017-06-29] MEDS: SENNOSIDES/DOCUSATE SODIUM TAB PO SCH ×2 (15:09→21:28)
--- NOTE | 2017-06-29 15:44 | OBPP ---
Progress Note Assessment/Plan: Assessment: POD 1 s/p primary C/S severe preeclampsia - improved B/P, on mag - has been reduced to 1 mg/hr and feeling better gloria zhang Plan: will D/C Mg at 17:00 and see how pain mngt and mobility is going before d/c catheter will check hct in am 06/27/17 19:52 06/27/17 21:33 06/29/17 15:40 Subjective: Pt doing so much better after mg decreased. Was feeling very heavy and oppressed. Not nauseated but worried about intake and only had crackers. concerned might have diarrhea after hemabate in surgery. No BM yet. baby has been latching and pt getting some colostrum Objective: 06/28/17 06:20 06/28/17 06:20 Patient ABO/Rh O POSITIVE 06/27/17 11:50 Uric Acid 5.7 mg/dL (2.5-6.8) 06/28/17 06:20 Total Bilirubin 0.6 mg/dL (0.1-1.4) 06/28/17 06:10 Conjugated Bilirubin 0.4 mg/dL (0.0-0.5) 06/28/17 06:10 Unconjugated Bilirubin 0.2 mg/dL (0.0-1.1) 06/28/17 06:10 AST 31 IU/L (14-46) 06/28/17 06:20 ALT 18 IU/L (9-52) 06/28/17 06:20 Lactate Dehydrogenase 588 IU/L (313-618) 06/28/17 06:20 Temp Pulse Resp BP Pulse Ox 113 H 163/96 H 06/28/17 04:02 06/28/17 04:02 Uterine Position/Fundal Height: Umbilicus -1 Uterine Tone: Firm Physical Exam - Physical Exam General Appearance: WD/WN Abdomen: non-tender (approp post op tenderness), soft, other (bandage CDI, normal lochia) Extremities: non-tender, pedal edema (moderate) Skin: normal color, warm/dry Neuro/Psych: alert, normal mood/affect
[2017-06-29] MEDS: HYDROCODONE/APAP 5/325 TAB PO PRN ×2 (18:41→22:07)
[2017-06-29] MEDS: IBUPROFEN 600 MG TAB PO PRN (21:28)
[2017-06-29] MEDS: DOCUSATE SODIUM 100 MG CAP PO PRN (21:31)
[2017-06-30] MEDS: HYDROCODONE/APAP 5/325 TAB PO PRN ×6 (02:17→20:30)
[2017-06-30] MEDS: IBUPROFEN 600 MG TAB PO PRN ×4 (03:16→21:56)
[2017-06-30] MEDS: SENNOSIDES/DOCUSATE SODIUM TAB PO SCH ×2 (08:09→20:46)
[2017-06-30] MEDS: LABETALOL HCL 100 MG TAB PO SCH ×2 (09:57→20:46)
--- NOTE | 2017-06-30 10:20 | OBPP ---
Progress Note Assessment/Plan: Assessment: 1) s/p PCS secondary to failed IOL POD # 2- pt is stable 2) Severe preeclampsia - s/p mag x 24 hrs 3) Anemia - pt is asymptomatic Plan: Continue routine post-op care Will start Labetalol 100 mg BID since elev BPs 150-160/90-100's Pt is asymptomatic and diuresing well Will cont to closely monitor BPs Will start iron BID Plan for d/c home in 48 hrs 06/30/17 10:17 Subjective: Pt seen and examined. Doing well with no complaints. Pain is well controlled. Denies any HAs, visual changes or RUQ pain. Pt is OOB, emilio regular diet, voiding without difficulty and passing flatus. Issa MB yet. Moderate lochia. BF without difficulty. Denies any f/c/n/v/CP or SOB Objective: 06/28/17 06:20 06/28/17 06:20 Patient ABO/Rh O POSITIVE 06/27/17 11:50 Uric Acid 5.7 mg/dL (2.5-6.8) 06/28/17 06:20 Total Bilirubin 0.6 mg/dL (0.1-1.4) 06/28/17 06:10 Conjugated Bilirubin 0.4 mg/dL (0.0-0.5) 06/28/17 06:10 Unconjugated Bilirubin 0.2 mg/dL (0.0-1.1) 06/28/17 06:10 AST 31 IU/L (14-46) 06/28/17 06:20 ALT 18 IU/L (9-52) 06/28/17 06:20 Lactate Dehydrogenase 588 IU/L (313-618) 06/28/17 06:20 Temp Pulse Resp BP Pulse Ox 36.9 C 77 18 163/93 H 93 06/30/17 08:40 06/30/17 09:57 06/30/17 08:40 06/30/17 09:57 06/30/17 08:40 Uterine Position/Fundal Height: Umbilicus -2 Uterine Tone: Firm Physical Exam - Physical Exam General Appearance: WD/WN, alert, no apparent distress Respiratory: lungs clear, normal breath sounds Cardiac/Chest: regular rate, rhythm Abdomen: normal bowel sounds, non-tender, soft, flatus (+), incision (C/D/I, well approximated) Extremities: non-tender, normal inspection, swelling (improved) DTR- Lower Extremities: Plantar (R): 2+, Plantar (L): 2+ Skin: normal color, warm/dry Neuro/Psych: alert, normal mood/affect, oriented x 3
[2017-06-30] MEDS: MISOPROSTOL 100 MCG TAB PO SCH ×2 (11:23→12:19)
[2017-06-30] MEDS: OXYMETAZOLINE 30 ML NASAL SPRAY EACHNARE SCH ×2 (11:24→12:19)
[2017-06-30] MEDS: IRON POLYSAC/IRON HEME 28 MG TAB PO SCH ×2 (11:42→20:46)
[2017-06-30] MEDS: DOCUSATE SODIUM 100 MG CAP PO PRN (20:47)
[2017-07-01] MEDS: HYDROCODONE/APAP 5/325 TAB PO PRN ×7 (01:06→23:59)
[2017-07-01] MEDS: IBUPROFEN 600 MG TAB PO PRN ×4 (05:38→23:57)
[2017-07-01] MEDS: LABETALOL HCL 100 MG TAB PO SCH (08:01)
[2017-07-01] MEDS: IRON POLYSAC/IRON HEME 28 MG TAB PO SCH ×2 (09:35→19:49)
[2017-07-01] MEDS: SENNOSIDES/DOCUSATE SODIUM TAB PO SCH ×2 (09:35→19:49)
[2017-07-01] MEDS ORDERED: LABETALOL HCL 100 MG TAB PO ONE (14:14)
[2017-07-01] MEDS: LABETALOL HCL 200 MG TAB PO SCH (19:49)
--- NOTE | 2017-07-01 21:10 | OBPP ---
Progress Note Assessment/Plan: Assessment: POD 3 s/p primary C/S severe preeclampsia - improved B/P but still borderline - started labetolol and increased to 200mg BID. anemia Plan: routine care. on labetolol BID, will see at 2 wks and assess if needs to decrease meds. 06/27/17 19:52 06/27/17 21:33 06/29/17 15:40 07/01/17 21:07 Subjective: Pt doing well. Baby is latching and milk coming in. pain is controlled with [place] 2 q 4 min. will try to reduce meds tonight. urinating fine. bld is less. Objective: 06/28/17 06:20 06/28/17 06:20 Patient ABO/Rh O POSITIVE 06/27/17 11:50 Uric Acid 5.7 mg/dL (2.5-6.8) 06/28/17 06:20 Total Bilirubin 0.6 mg/dL (0.1-1.4) 06/28/17 06:10 Conjugated Bilirubin 0.4 mg/dL (0.0-0.5) 06/28/17 06:10 Unconjugated Bilirubin 0.2 mg/dL (0.0-1.1) 06/28/17 06:10 AST 31 IU/L (14-46) 06/28/17 06:20 ALT 18 IU/L (9-52) 06/28/17 06:20 Lactate Dehydrogenase 588 IU/L (313-618) 06/28/17 06:20 Temp Pulse Resp BP Pulse Ox 36.6 C 97 18 142/93 H 94 07/01/17 20:30 07/01/17 20:30 07/01/17 20:30 07/01/17 20:30 07/01/17 20:30 Uterine Position/Fundal Height: Umbilicus -1 Uterine Tone: Firm Physical Exam - Physical Exam General Appearance: WD/WN, alert Abdomen: non-tender (approp post op tenderness), soft, other (incision CDI, normal lochia) Extremities: non-tender, pedal edema (moderate) Skin: normal color, warm/dry Neuro/Psych: alert, normal mood/affect
[2017-07-02] MEDS: HYDROCODONE/APAP 5/325 TAB PO PRN ×4 (06:04→19:46)
[2017-07-02] MEDS: IBUPROFEN 600 MG TAB PO PRN ×3 (06:05→20:00)
[2017-07-02] MEDS: LABETALOL HCL 200 MG TAB PO SCH ×2 (08:48→21:02)
[2017-07-02] MEDS: IRON POLYSAC/IRON HEME 28 MG TAB PO SCH ×2 (08:48→21:17)
[2017-07-02] MEDS: SENNOSIDES/DOCUSATE SODIUM TAB PO SCH ×3 (08:48→21:05)
--- NOTE | 2017-07-02 09:43 | OBPP ---
Progress Note Assessment/Plan: Assessment: pain well managed continued elevated BP 148/96 range denies PIH symptoms dtrs1+ bilaterally no clonus incision well approximated afebrile ff@u scant rubra lochia + passing gas voiding without difficulty Plan:dischagre to home possibly today if BP management better before the end of the day 07/02/17 09:40 Subjective: pain well managed. Dizzy with walking. Denies PIH symptoms Objective: 06/28/17 06:20 06/28/17 06:20 Patient ABO/Rh O POSITIVE 06/27/17 11:50 Uric Acid 5.7 mg/dL (2.5-6.8) 06/28/17 06:20 Total Bilirubin 0.6 mg/dL (0.1-1.4) 06/28/17 06:10 Conjugated Bilirubin 0.4 mg/dL (0.0-0.5) 06/28/17 06:10 Unconjugated Bilirubin 0.2 mg/dL (0.0-1.1) 06/28/17 06:10 AST 31 IU/L (14-46) 06/28/17 06:20 ALT 18 IU/L (9-52) 06/28/17 06:20 Lactate Dehydrogenase 588 IU/L (313-618) 06/28/17 06:20 Temp Pulse Resp BP Pulse Ox 36.6 C 94 18 148/96 H 96 07/02/17 02:00 07/02/17 02:00 07/02/17 02:00 07/02/17 08:48 07/02/17 02:00 Uterine Position/Fundal Height: At Umbilicus Uterine Tone: Firm Physical Exam - Physical Exam General Appearance: WD/WN, alert, no apparent distress Respiratory: chest non-tender, lungs clear, normal breath sounds Cardiac/Chest: regular rate, rhythm Abdomen: normal bowel sounds Extremities: normal range of motion, Dorinda's sign (negative bilaterally) DTR- Lower Extremities: Knee (R): 1+, Knee (L): 1+ (no clonus bilaterally) Skin: normal color, warm/dry Neuro/Psych: no motor/sensory deficits, alert, normal mood/affect, oriented x 3
[2017-07-02] MEDS ORDERED: LABETALOL HCL 100 MG TAB PO ONE (11:00)
[2017-07-02] MEDS: NIFEdipine ER 30 MG TAB PO SCH (17:30)
--- NOTE | 2017-07-02 18:46 | OBPP ---
Progress Note Assessment/Plan: Assessment: pain well managed continued elevated BP 168/101 range denies PIH symptoms dtrs2+ bilaterally no clonus nifedipine 30mg QD repeat bp after nifedipine after 1h 177/101 Plan:no discharge stayed for bp management 07/02/17 09:40 07/02/17 18:39 Subjective: Denies pih symptoms Objective: 06/28/17 06:20 06/28/17 06:20 Patient ABO/Rh O POSITIVE 06/27/17 11:50 Uric Acid 5.7 mg/dL (2.5-6.8) 06/28/17 06:20 Total Bilirubin 0.6 mg/dL (0.1-1.4) 06/28/17 06:10 Conjugated Bilirubin 0.4 mg/dL (0.0-0.5) 06/28/17 06:10 Unconjugated Bilirubin 0.2 mg/dL (0.0-1.1) 06/28/17 06:10 AST 31 IU/L (14-46) 06/28/17 06:20 ALT 18 IU/L (9-52) 06/28/17 06:20 Lactate Dehydrogenase 588 IU/L (313-618) 06/28/17 06:20 Temp Pulse Resp BP Pulse Ox 36.7 C 88 16 161/103 H 96 07/02/17 17:07 07/02/17 09:00 07/02/17 17:07 07/02/17 17:30 07/02/17 17:07
[2017-07-02 19:55] LABS: % IMMATURE GRANULYOCYTES 1.6 % (0.0-1.1); ABSOLUTE IMMATURE GRANULOCYTES 0.18 10^3/uL (0.00-0.10); ABSOLUTE NRBC COUNT 0.02 10^3/uL (0-0.01); ADD DIFF? NO; ADD MORPH? NO; ADD SCAN? NO; ATYPICAL LYMPHOCYTE FLAG 10 (0-99); FRAGMENT RBC FLAG 0 (0-99); LEFT SHIFT FLG 10 (0-99); LIPEMIA HEMOLYSIS FLAG 80 (0-99); MEAN CELL HEMOGLOBIN 30.6 pg (27.9-34.1); MEAN CELL HEMOGLOBIN CONCENTR. 32.4 g/dL (32.4-36.7); MEAN CELL VOLUME 94.4 fL (81.5-99.8); MEAN PLATELET VOLUME 10.2 fL (8.7-11.7); NRBC-AUTO% 0.2 % (0.0-0.2); PLATELET CLUMPS FLAG 0 (0-99); PLATELET COUNT 233 10^3/uL (150-400); RED CELL DISTRIBUTION WIDTH 13.9 % (11.5-15.2)
[2017-07-02 20:05] LABS: ALANINE AMINOTRANSFERASE 47 IU/L (9-52); ASPARTATE AMINOTRANSFERASE 35 IU/L (14-46); BILIRUBIN,TOTAL 0.4 mg/dL (0.1-1.4); BILIRUBIN-CONJUGATED 0.2 mg/dL (0.0-0.5); BILIRUBIN-UNCONJUGATED 0.2 mg/dL (0.0-1.1); CREATININE 0.9 mg/dL (0.6-1.0); GLOMERULAR FILTRATION RATE > 60; LACTATE DEHYDROGENASE 588 IU/L (313-618); URIC ACID 5.1 mg/dL (2.5-6.8)
[2017-07-03] MEDS: HYDROCODONE/APAP 5/325 TAB PO PRN ×3 (00:27→12:31)
[2017-07-03] MEDS: IBUPROFEN 600 MG TAB PO PRN ×2 (02:43→09:24)
[2017-07-03] MEDS: SENNOSIDES/DOCUSATE SODIUM TAB PO SCH (08:07)
[2017-07-03] MEDS: IRON POLYSAC/IRON HEME 28 MG TAB PO SCH (08:08)
[2017-07-03] MEDS: LABETALOL HCL 200 MG TAB PO SCH (08:10)
[2017-07-03] MEDS: NIFEdipine ER 30 MG TAB PO SCH (08:45)
[2017-07-03 08:58] VITALS: PULSE 97; RESP 16; TEMP 100; O2SAT 94
--- NOTE | 2017-07-03 12:23 | OBPP ---
Progress Note Assessment/Plan: Assessment: 31 y/o POD #5 s/p LTCS secondary to failed IOL and severe pre-eclampsia with residual elevated BP now post Plan: Pt has improved and BP is improved on Nifedipine XL 30 mg and Labetalol 300 mg BID. I feel that she can go home on that regimen with a BP cuff to monitor and close supervision in the office as an outpatient. Will follow-up Saturday for a BP check. 07/03/17 12:20 Subjective: Pt is feeling overall better, but has developed episodes of scotomata now this am as her BP has normalized. She was started on Nifedipine XL 30 mg, in addition to Labetalol 300 mg BID and her BP is lower now 120-130/80-90''s. She is ambulating well, denies light headedness or dizziness, has min lochia and has good pain control. Breast feeding is going well and baby has been discharged. Objective: 07/02/17 19:30 07/02/17 19:30 Patient ABO/Rh O POSITIVE 06/27/17 11:50 Uric Acid 5.1 mg/dL (2.5-6.8) 07/02/17 19:30 Total Bilirubin 0.4 mg/dL (0.1-1.4) 07/02/17 19:30 Conjugated Bilirubin 0.2 mg/dL (0.0-0.5) 07/02/17 19:30 Unconjugated Bilirubin 0.2 mg/dL (0.0-1.1) 07/02/17 19:30 AST 35 IU/L (14-46) 07/02/17 19:30 ALT 47 IU/L (9-52) 07/02/17 19:30 Lactate Dehydrogenase 588 IU/L (313-618) 07/02/17 19:30 Temp Pulse Resp BP Pulse Ox 37.7 C 97 16 123/80 H 94 07/03/17 08:00 07/03/17 08:00 07/03/17 08:00 07/03/17 10:12 07/03/17 08:00 Uterine Position/Fundal Height: Umbilicus -2 Uterine Tone: Firm Physical Exam - Physical Exam General Appearance: WD/WN, alert, no apparent distress Neck: non-tender, full range of motion, supple Respiratory: chest non-tender, lungs clear, normal breath sounds Cardiac/Chest: regular rate, rhythm Abdomen: normal bowel sounds, incision (c/d/i) Extremities: swelling (no), Dorinda's sign (neg)
--- NOTE | 2017-07-03 12:27 | OBGCSDC ---
General Delivery Information - General Info : 2 Para: 1 Abortions: 0 Delivery Physician/CNM: Aleena Martinez Audio Visual Director: Tram Payne Admission Date: 06/27/17 Labs: Patient ABO/Rh O POSITIVE 06/27/17 11:50 Hct 34.0 % (38.0-47.0) L 07/02/17 19:30 Vaginal - Diagnosis Presentation at Delivery: Vertex - Operations/Procedures L&D Analgesia/Anesthesia Type: Epidural, Spinal - Delivery Number of Prior Sections: 0 Indications for Current Section: Arrest of Dilation, Other (Specify) ( failed IOL) Type: Primary Surgical Procedures: Unscheduled, Low Transverse Intra-op Complications: None EBL: 700 L&D Analgesia/Anesthesia Type: Epidural, Spinal - Hospital Course Antepartum: admitted for IOL secondary to severe pre-eclampsia on MgSo4, multiple doses of Hydralazine, and IV Labetalol given for elevated BP, castro, pitocin, cytotec no progress H/o GERD, hyperemesis, and depression/anxiety Intrapartum: failed IOL, severe range BP, uncomplicated c section : Meds increased to control PP BP after PP MgSo4, d/c home on Labetalol 300 mg BID and Nifedepine XL 30 mg QD Data Sommers Delivery Date: 06/28/17 Delivery Time: 16:13 TANYA: 07/05/17 Gestational Age: 39 week(s) and 5 day(s) Sex of Infant: Female Weight (gm): 2618 g Score (1 Min): 8 Score (5 Min): 9 Discharge Information - Discharge Information Discharge Medications: Iron, Hydrocodone, Ibuprofen, Other (Specify) (Labetalol 300 mg BID, Nifedipine XL 30 mg QD, ) Condition: Good Instruction/Follow Up: Two Weeks, Four Weeks, Six Weeks Discharge Physician/CNM: Aleena Martinez
[2017-07-03 13:14] VITALS: BP 121/85
== END 2017-07-03 14:40 | disposition home or self-care (01) | DRG 765 ==
LOC: FLD 10:50 → FOB 06-30 00:06
PROVIDERS: ADMIT Obstetrics & Gynecology; ATTEND Obstetrics & Gynecology
PROC: 3E033VJ Introduction of Other Hormone into Peripheral Vein, Percutaneous Approach (ICD-10-PCS; 2017-06-27)
PROC: 10D00Z1 Extraction of Products of Conception, Low, Open Approach (ICD-10-PCS; principal; 2017-06-28)
DX: O14.14 Severe pre-eclampsia complicating childbirth (principal); O21.0 Mild hyperemesis gravidarum; O21.2 Late vomiting of pregnancy; O41.03X0 Oligohydramnios, third trimester, not applicable or unspecified; O66.40 Failed trial of labor, unspecified; O99.03 Anemia complicating the puerperium; O71.2 Postpartum inversion of uterus; Z3A.38 38 weeks gestation of pregnancy; Z37.0 Single live birth
CPT/HCPCS: G0463; J0360; J0610; J0690; J1100; J1885; J2060; J2210; J2370; J2405; J2550; J2590; J3010; J3105; J3475